=== PATIENT | female | born 1970 | race Caucasian/White ===

== ENCOUNTER 2016-12-03 14:43 | Day surgery (SDC) | payer OTHER ==
[~2016-12-03] VITALS: Ht 162.6 cm; Wt 91.6 kg
[2016-12-03] MEDS ORDERED: Propofol 10,000 mCg/mL 20 mL Inj ONE (14:44)
[2016-12-03] MEDS ORDERED: fentaNYL-PF 50 mCg/mL 2 mL Inj ONE (14:44)
[2016-12-03 15:05] VITALS: BP 144/69; PULSE 71; RESP 16; O2SAT 98
[2016-12-03] MEDS ORDERED: DEXL30CA3 PO (15:10)
[2016-12-03] MEDS ORDERED: ESOM40CA41 PO (15:10)
[2016-12-03] MEDS ORDERED: LOSA50TA37 PO (15:10)
[2016-12-03] MEDS ORDERED: HYDR25TA4 PO (15:10)
[2016-12-03] MEDS ORDERED: ESTR1TAB15 PO (15:10)
[2016-12-03] MEDS ORDERED: CALC500T9 PO (15:10)
[2016-12-03] MEDS ORDERED: ESCI20TA38 PO (15:10)
[2016-12-03] MEDS ORDERED: ROPI0.252 PO (15:10)
--- NOTE | 2016-12-03 16:03 | PCM.HPANE ---
Patient Data Surgeon Admitting Provider: Attending Provider:Jaylan Pedroza MD Primary Care Physician:Marcio Spence MD Other Provider:Chrissy Laraingham Anesthesia Reason for Visit Constipation, Reflux Esophagitis Ht/WT & BMI Body Mass Index Allergies Coded Allergies: amlodipine (Verified Allergy, Intermediate, SWELLING, 12/03/16) lisinopril (Verified Adverse Reaction, Intermediate, COUGH, 12/03/16) Past Anesthesia History Anesthesia History: Denies:: Abnormal Airway, Anesthesia Reactions, Difficult Intubation, Fam Anesthesia Reaction, Fam Malignant Hypertherm, Malignant Hyperthermia Medications Reported Medications Calcium Carbonate (Tums)500 Mg Tab.usfz106 Mg PO PRN PRN For Dyspepsia or Heartburn 30 Days 12/03/16 Ropinirole 0.25 Mg Tablet0.25 Mg PO HS Ref 0 12/03/16 Estrogens Conj/Medroxyprog 0.3-1.5 mg (Prempro 0.3-1.5 mg)1 Each Tablet1 Tablet PO DAILY #1 PACK 12/03/16 Esomeprazole Magnesium (Nexium)40 Mg Capsule.dr40 Mg PO DAILY Ref 0 12/03/16 Losartan Potassium 50 Mg Eoixlz21 Mg PO DAILY 12/03/16 Escitalopram Oxalate 20 Mg Stakyk79 Mg PO DAILY 30 Days Ref 0 12/03/16 Hydrochlorothiazide 25 Mg Midyke37 Mg PO DAILY 30 Days Ref 0 12/03/16 Dexlansoprazole ER (Dexilant)30 Mg Cmxiqps89 Mg PO DAILY Ref 0 12/03/16 History History of ENT Problems?: No HEENT History: Denies:: Abnormal Airway Cataracts Difficult Intubation Dysphagia Glaucoma Hearing Problem Sinus Problem TMJ Denture Type: None Teeth Condition: Missing Teeth Hx of Heart Problems?: Yes Cardiovascular History: Positive for:: Heart Murmur Denies:: AICD Abdominal Aortic Aneurism Atrial Fibrillation Cardiac Surgery Chest Pain Congestive Heart Failure Coronary Artery Disease Edema Hypertension Irregular Heartbeat Pacemaker Peripheral Vascular Rheumatic Fever Thrombophlebitis Valvular Heart Disease Hx of Respiratory Problem?: No Respiratory History: Denies:: Asthma COPD Chest Surgery Cough Dyspnea Emphysema Hemoptysis Oxygen Administration Pneumonia Pulmonary Embolism Tuberculosis Use of C-PAP Machine Use of Inhalers / NEBS Hx Neurologic Problems?: No Hx of GI Problems?: Yes Gastrointestinal History: Positive for:: Gastroesphageal Reflux Hx of Problems?: No Hx Musculoskeletal Problems?: No Hx Surgeries?: Yes Stop/Bang Risk Assessment Category Category 1A: Patient has history of documented sleep apnea, and HAS NOT received any narcotic, sedative or anesthesia administration during this stay. Category 1B: Patient has history of documented sleep apnea, and HAS received any narcotic , sedative or anesthesia administration during this stay Category 2: Patient has SUSPECTED Obstructive Sleep Apnea, and HAS received any narcotic , sedative or anesthesia administration during this stay. Category 3: Patient has SUSPECTED Obstructive Sleep Apnea and HAS NOT received narcotic, sedative or anesthesia administration during this stay. Category 4: Outpatient in Procedural Areas with known sleep apnea or who screen positive for High Risk via the STOP/BANG questionnaire. Exam Exam General Appearance: Alert, Oriented X3, Cooperative, No Acute Distress HEENT/AIRWAY: MP 2 Lungs: Clear to Auscultation Heart: Exam Unremarkable Plan Impression Patient chart reviewed, patient interviewed and anesthestic plan with risks, benefits, and alternatives discussed, and informed consent obtained. ASA Physical Status: ASA2 Mod Systemic Disease Anesthetic Plan: GA Bene/Risks/Altern/Consents: Yes HP Complete Prior to Induction: Yes Ruddy Armijo MD Dec 03, 2016 14:56
[2016-12-03] MEDS ORDERED: Lactated Ringer's 1,000 ML IV ONE (16:10)
[2016-12-03 16:40] VITALS: BP 114/64; PULSE 84; RESP 16; O2SAT 95
--- NOTE | 2016-12-03 16:46 | PCM.ANEP1 ---
Post Anesthesia PACU Phase 1 Assessment Vital Signs Vital Signs Date Time Temp Pulse Resp B/P Pulse Ox O2 Delivery O2 Flow Rate FiO2 12/03/16 16:40 84 16 114/64 95 Room Air 12/03/16 15:05 36.4 71 16 144/69 98 Room Air Anesthetic Administered: MAC Level of Alertness: Awake, talking Pain: No Nausea or Vomiting: No CV Function & Hydration Stable: Yes Airway Device: Oxygen Delivery: Room Air Lungs: Clear to Auscultation Dermatome Level: Full Sensation PACU Phase 2 Assessment Complications: No Patient Instructions Provided: N/A Ruddy Armijo MD Dec 03, 2016 16:45
[2016-12-03 16:50] VITALS: BP 116/61; PULSE 83; RESP 16; O2SAT 96
[2016-12-03 17:00] VITALS: BP 133/67; PULSE 74; RESP 16; O2SAT 98
--- NOTE | 2016-12-03 18:33 | ENDO ---
[address] [address] ENDOSCOPY PROCEDURE PATIENT: JADIEL LOERA : 1970 MR#: [id number] ADMIT: 12/03/2016 JOB ID: [id number] PROCEDURE #1: Esophagogastroduodenoscopy. INDICATION: Gastroesophageal reflux. Patient's ASA classification, Mallampati score, and medications as per anesthesia note. INSTRUMENT USED: [id number] PROCEDURE DETAILS: After informed consent was obtained, the patient was brought into the GI suite, where she was placed on oxygen via nasal cannula and monitored with continuous pulse oximeter, telemetry, and blood pressure monitoring. A time-out was performed. Then, she was placed in the left lateral decubitus position and medications were administered for sedation. A bite block was placed. Standard EGD scope was inserted through the bite block and advanced under direct visualization to the second portion of the duodenum without difficulty. FINDINGS: 1. Normal-appearing duodenal bulb, first and second portion. Multiple random biopsies were obtained. 2. Normal-appearing pylorus, antrum, and gastric body. Multiple random biopsies were obtained. 3. Retroflexed views in the gastric body revealed a normal-appearing cardia, fundus, and a hiatal hernia was appreciated. 4. The diaphragmatic hiatus was at approximately 35 cm, and the squamocolumnar junction which coincided with the top of the gastric folds was at approximately 33 cm. Arising from the squamocolumnar junction, there was a short tongue of salmon-colored mucosa. A single biopsy was obtained. The remainder of the esophagus otherwise appeared unremarkable. IMPRESSION: 1. Hiatal hernia. 2. Slightly irregular gastroesophageal junction. RECOMMENDATIONS: 1. Await biopsy results. 2. Continue PPI. 3. Smoking cessation was encouraged. 4. Weight loss was also encouraged. 5. Proceed to colonoscopy. COMPLICATIONS: None estimated. BLOOD LOSS: Less than 5 mL. PROCEDURE #2: Colonoscopy. INDICATION: Change in bowel habits and constipation. Please see above for ASA classification, Mallampati score, and medications. INSTRUMENT USED: PCF-H190 DL. PREPARATION QUALITY: Fair. PROCEDURE DETAILS: After completion of the EGD exam, the patient was turned and then a digital rectal exam was performed, which was unremarkable. The colonoscope was then inserted into the rectum and advanced under direct visualization to the cecum, which was identified by the presence of the ileocecal valve and appendiceal orifice. Once the cecum was reached, the colonoscope was withdrawn back into the rectum as the mucosa and lumen were examined. In the rectum, retroflexion was performed. Following retroflexion, remaining air in the rectum was suctioned, and procedure was completed. FINDINGS: 1. In the transverse colon, there was a diminutive polyp that was removed with cold biopsy forceps. 2. Otherwise normal exam from rectum to cecum. IMPRESSION: Transverse colon polyp. RECOMMENDATIONS: 1. Repeat colonoscopy pending polyp pathology results. 2. Follow up in GI clinic in 2-4 weeks. COMPLICATIONS: None. ESTIMATED BLOOD LOSS: Less than 5 mL.
--- NOTE | 2016-12-05 14:24 | PATH ---
SURGICAL PATHOLOGY Attending Physician:Laci Barrios CASE STATUS: Signed Out PATIENT NAME: JADIEL LOERA PID: [id number] : 1970 DATE COLLECTED:12/03/2016 00:00 SPECIMEN: 1: Gastric, Biopsy 2: Duodenum, Biopsy 3: Esophagus, Biopsy 4: Colon, Polyp CLINICAL HISTORY: 1. RANDOM GASTRIC BXS 2. DUODENAL BXS 3. DISTAL ESOPHAGUS BXS 4. TRANSVERSE COLON POLYP FINAL DIAGNOSIS: 1.RANDOM GASTRIC BIOPSIES: FRAGMENT OF GASTRIC ANTRAL MUCOSA, NEGATIVE FOR SIGNIFICANT INFLAMMATION. Negative for evidence of Helicobacter on H&E stain. Negative for intestinal metaplasia. Negative for dysplasia and malignancy. 2.DUODENAL BIOPSIES: CHANGES OF CHRONIC DUODENITIS WITH SMALL FOCI OF FOVEOLAR METAPLASIA. Negative for evidence of celiac disease. Negative for dysplasia and malignancy. 3.DISTAL ESOPHAGUS BIOPSIES: FRAGMENTS OF SQUAMOUS MUCOSA AND GASTRIC CARDIA-TYPE NEGATIVE FOR SPECIALIZED METAPLASIA OF GONZALEZ' S-TYPE ESOPHAGUS. Negative for dysplasia and malignancy. Negative for squamous intraepithelial eosinophils. 4.TRANSVERSE COLON POLYP: HYPERPLASTIC POLYP. ICD10 K63.5 GROSS DESCRIPTION: The specimen is received in four formalin filled containers labeled with the patient's name. 1). The specimen is sublabeled "random gastric" and consists of a 0.3 x 0.3 x 0.2 CM portion of tissue which is entirely submitted in cassettes 1A. 2). The specimen is sublabeled "duodenal" and consists of 3 portions of tissue which aggregate to 0.3 x 0.3 x 0.2 CM. The specimen is entirely submitted in cassette 2A. 3). The specimen is sublabeled "distal esophagus" and consists of a 0.3 x 0.3 x 0.2 CM portion of tissue which is entirely submitted in cassette 3A. 4). The specimen is sublabeled "transverse colon polyp" and consists of a 0.5 x 0.2 x 0.2 CM portion of tissue which is entirely submitted in cassette 4A. 12/04/2016 [facility] MICRO DESCRIPTION: See diagnosis. ICD-9 CODES: CPT CODES: 1: 35059 2: 42716 3: 49468 4: 07744 Electronically Signed Out Junior Heredia MD [facility] [address] [place] [id number] Technical component performed at [facility], [address], [address]
== END 2016-12-03 23:59 | disposition home or self-care (01) ==
LOC: END 14:43
PROVIDERS: ATTEND Internal Medicine Gastroenterology
DX: K63.5 Polyp of colon (principal); K22.70 Barrett's esophagus without dysplasia; K29.80 Duodenitis without bleeding; K44.9 Diaphragmatic hernia without obstruction or gangrene; K21.9 Gastro-esophageal reflux disease without esophagitis; R19.4 Change in bowel habit; F41.9 Anxiety disorder, unspecified; F17.210 Nicotine dependence, cigarettes, uncomplicated; F10.21 Alcohol dependence, in remission; E66.9 Obesity, unspecified; Z68.34 Body mass index [BMI] 34.0-34.9, adult
CPT/HCPCS: 43239; 45380; 88305; J3010; J7120